=== PATIENT | female | born 1990 | race Caucasian/White ===

== ENCOUNTER 2023-11-01 14:17 | Inpatient (IN) | payer MEDICAID, SELFPAY ==
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
[2023-11-01 16:15] VITALS: BMI 22.4
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
[2023-11-01 20:00] VITALS: BP 135/91; PULSE 89; RESP 16; TEMP 36.9; O2SAT 99
[2023-11-01] MEDS: hydrOXYzine HCL 25 MG TABLET PO (22:42)
[2023-11-02 07:00] VITALS: BMI 22.7
[2023-11-02 08:00] VITALS: BP 120/70; PULSE 73; RESP 16; TEMP 36.4; O2SAT 98
[2023-11-02] MEDS: Nicotine 21 MG PATCH.TD24 TRANSDERMA (08:41)
[2023-11-02 08:45] LABS: Alanine Aminotransferase 14 U/L (0-31); Albumin Level 4.6 g/dL (3.5-5.0); Alkaline Phosphatase 62 U/L (39-117); Anion Gap 12 (12-20); Aspartate Amino Transferase 15 U/L (5-31); Bilirubin Total 0.3 mg/dL (0.0-1.0); Blood Urea Nitrogen 14 mg/dL (9-16); Calcium 9.8 mg/dL (8.4-10.2); Carbon Dioxide 24 mmol/L (22-29); Chloride 106 mmol/L (96-108); Cholesterol 187 mg/dL (<200); Creatinine Clr Calc Pharmacy 96.9; Estimated Glomerular Filt Rate > 60; Glucose Fasting 121 mg/dL (60-99); HDL Cholesterol 63 mg/dL (>40); LDL Cholesterol Calculated 107 mg/dL (<100); Potassium 4.3 mmol/L (3.3-5.1); Sodium 138 mmol/L (135-145); Total Protein 7.5 g/dL (6.5-8.0); Triglycerides 86 mg/dL (<150)
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
--- NOTE | 2023-11-02 09:25 | PC.NURSE ---
Pt signed a 3 day 11/02/23, up on Monday11/07/23
[2023-11-02 20:00] VITALS: BP 145/102; PULSE 110; TEMP 36.2; O2SAT 97
[2023-11-02] MEDS: lamoTRIgine 25 MG TABLET PO (20:47)
[2023-11-02] MEDS: OLANZapine 5 MG TABLET PO (20:47)
[2023-11-03 08:00] VITALS: BP 117/62; PULSE 60; RESP 14; TEMP 36.8; O2SAT 99
[2023-11-03] MEDS: Nicotine 21 MG PATCH.TD24 TRANSDERMA (08:41)
--- NOTE | 2023-11-03 09:27 | HO.PSYCHPN ---
Subjective Subjective Date of Service: 11/03/23 Reason For Visit: Schizoaffective disorder, bipolar type Subjective Notes: 3 Day Interim History: Reviewed with Dr. Norris. Pt presents with rapid and pressured speech. Observed responding to internal stimuli. labile. disorganized. Pt agreed to taking Depakote;risks/benefits reviewed. DC lamictal. DC Zyprexa. Start: risperidal 1mg PO BID. pt denies SI/HI/VH/AH. Medication Compliance: Yes Side effects from medications: No Attending Groups: Yes Review of Systems Constitutional: Reports as per HPI Eyes: Reports as per HPI Reports as per HPI Cardiovascular: Reports as per HPI Respiratory: Reports as per HPI Gastrointestinal: Reports as per HPI Musculoskeletal: Reports as per HPI Skin/Breast: Reports as per HPI Reports as per HPI Psychiatric: Reports as per HPI Endocrine: Reports as per HPI Hematologic/Lymphatic: Reports as per HPI Allergic/Immunologic: Reports as per HPI Mental Status Exam Mental Status Exam Narrative: Pt is alert and oriented; behavior is cooperative, tearful; dressed in casual attire; labile; eye contact appropriate; Speech is rapid rate, volume and pressured; circumstantial, focused on past trauma; denies SI/HI/VH/AH. Diagnostics Vital Signs (24Hr): Vital Signs - 24 hr 11/02/23 20:00 11/03/23 08:00 Temperature 97.2 F 98.2 F Pulse Rate 110 H 60 Respiratory Rate 14 Blood Pressure 145/102 H 117/62 Pulse Oximetry 97 99 Oxygen Delivery Method Room Air Room Air BMI result Body Mass Index 22.7 Labs 11/02/23 08:06 Labs: Laboratory Results - last 48 hr 11/02/23 08:06 Sodium 138 Potassium 4.3 Chloride 106 Carbon Dioxide 24 Anion Gap 12 BUN 14 Creatinine 0.78 Estim Creat Clear Calc 96.9 Estimated GFR > 60 Fasting Glucose 121 H Calcium 9.8 Total Bilirubin 0.3 AST 15 ALT 14 Alkaline Phosphatase 62 Total Protein 7.5 Albumin 4.6 Triglycerides 86 Cholesterol 187 LDL Cholesterol, Calc 107 H HDL Cholesterol 63 Medications Medications Current Medications Acetaminophen (Acetaminophen 325 Mg Tablet) 650 mg PO Q6H PRN PRN Reason: Headache/Pain Mild Scale (1-3) Al Hydroxide/Mg Hydroxide (Magnesium Hydrox/Alum Hydrox 30 Ml Oral.Susp) 30 ml PO Q6H PRN PRN Reason: Heartburn/Nausea Hydroxyzine HCl (Hydroxyzine Hcl 25 Mg Tablet) 25 mg PO Q6H PRN PRN Reason: Anxiety Last Admin: 11/01/23 22:42 Dose: 25 mg Lamotrigine (Lamotrigine 25 Mg Tablet) 25 mg PO BEDTIME PATRICK Last Admin: 11/02/23 20:47 Dose: 25 mg Magnesium Hydroxide (Milk Of Magnesia 30 Ml Oral.Susp) 30 ml PO DAILY PRN PRN Reason: Constipation Nicotine (Nicotine 21 Mg Patch.Td24) 21 mg TRANSDERMA DAILY [facility] Last Admin: 11/03/23 08:41 Dose: 21 mg Nicotine Polacrilex (Nicotine Polacrilex 2 Mg Gum) 4 mg BUCCAL Q2H PRN PRN Reason: Nicotine Cravings Olanzapine (Olanzapine 5 Mg Tablet) 5 mg PO Q4H PRN PRN Reason: agitation Olanzapine (Olanzapine 5 Mg Tablet) 5 mg PO BEDTIME PATRICK Last Admin: 11/02/23 20:47 Dose: 5 mg Trazodone HCl (Trazodone Hcl 50 Mg Tablet) 50 mg PO BEDTIME MRX1 PRN PRN Reason: Insomnia Allergies Allergies Allergy/AdvReac Type Severity Reaction Status Date / Time shrimp Allergy Anaphylaxis Verified 11/01/23 14:33 Sulfa (Sulfonamide Allergy Hives Verified 11/01/23 14:33 Antibiotics) Assessment & Plan Assessment & Plan (1) PTSD (post-traumatic stress disorder): Status: Acute Code(s): F43.10 - Post-traumatic stress disorder, unspecified (2) Substance-induced psychotic disorder: Status: Acute Code(s): F19.959 - Other psychoactive substance use, unspecified with psychoactive substance-induced psychotic disorder, unspecified Plan Patient is a 33-year-old female with history of PTSD who was brought into ER via brother d/t psychiatric decompensation and bizarre behavior. Plan: day notice 15 minute safety checks obtain collateral referral to outpatient prescriber and therapist encourage groups Start: Lamictal 25mg PO bedtime Zyprexa 5mg PO bedtime Initial diagnosis: Substance induced psychosis. Differential: Bipolar d/o 11/02: Pt presents with rapid and pressured speech. Observed responding to internal stimuli. labile. disorganized. Pt agreed to taking Depakote;risks/benefits reviewed. denies SI/HI/VH/AH. DC lamictal. DC Zyprexa. Start: risperidal 1mg PO BID Depakote 500mg PO BID Patient educated on: diagnosis, medication risk/benefits and therapeutic strategies Reason for continued inpatient stay Substantial Risk for: med/psych decompensation Time Spent With Patient Time: Total time managing care of this patient today _20___ minutes.
[2023-11-03] MEDS: Divalproex Sodium 500 MG TABLET.DR PO ×2 (10:08→21:56)
[2023-11-03] MEDS: hydrOXYzine HCL 25 MG TABLET PO ×2 (10:08→21:58)
[2023-11-03 20:00] VITALS: BP 167/72; PULSE 93; RESP 17; TEMP 36.5; O2SAT 98
[2023-11-03] MEDS: risperiDONE 1 MG TABLET PO (21:55)
[2023-11-03] MEDS: traZODone HCL 50 MG TABLET PO (21:56)
--- NOTE | 2023-11-04 08:53 | HO.PSYCHPN ---
Subjective Subjective Reason For Visit: Schizoaffective disorder, bipolar type Diagnostics Vital Signs (24Hr): Vital Signs - 24 hr 11/03/23 20:00 Temperature 97.7 F Pulse Rate 93 Respiratory Rate 17 Blood Pressure 167/72 H Pulse Oximetry 98 Oxygen Delivery Method Room Air BMI result Body Mass Index 22.7 Labs 11/02/23 08:06 Medications Medications Current Medications Acetaminophen (Acetaminophen 325 Mg Tablet) 650 mg PO Q6H PRN PRN Reason: Headache/Pain Mild Scale (1-3) Al Hydroxide/Mg Hydroxide (Magnesium Hydrox/Alum Hydrox 30 Ml Oral.Susp) 30 ml PO Q6H PRN PRN Reason: Heartburn/Nausea Divalproex Sodium (Divalproex Sodium 500 Mg Tablet.Dr) 500 mg PO BID [facility] Last Admin: 11/03/23 21:56 Dose: 500 mg Hydroxyzine HCl (Hydroxyzine Hcl 25 Mg Tablet) 25 mg PO Q6H PRN PRN Reason: Anxiety Last Admin: 11/03/23 21:58 Dose: 25 mg Magnesium Hydroxide (Milk Of Magnesia 30 Ml Oral.Susp) 30 ml PO DAILY PRN PRN Reason: Constipation Nicotine (Nicotine 21 Mg Patch.Td24) 21 mg TRANSDERMA DAILY [facility] Last Admin: 11/03/23 08:41 Dose: 21 mg Nicotine Polacrilex (Nicotine Polacrilex 2 Mg Gum) 4 mg BUCCAL Q2H PRN PRN Reason: Nicotine Cravings Risperidone (Risperidone 1 Mg Tablet) 1 mg PO BID [facility] Last Admin: 11/03/23 21:55 Dose: 1 mg Trazodone HCl (Trazodone Hcl 50 Mg Tablet) 50 mg PO BEDTIME MRX1 PRN PRN Reason: Insomnia Last Admin: 11/03/23 21:56 Dose: 50 mg Allergies Allergies Allergy/AdvReac Type Severity Reaction Status Date / Time shrimp Allergy Anaphylaxis Verified 11/01/23 14:33 Sulfa (Sulfonamide Allergy Hives Verified 11/01/23 14:33 Antibiotics) Assessment & Plan Assessment & Plan (1) PTSD (post-traumatic stress disorder): Status: Acute Code(s): F43.10 - Post-traumatic stress disorder, unspecified (2) Substance-induced psychotic disorder: Status: Acute Code(s): F19.959 - Other psychoactive substance use, unspecified with psychoactive substance-induced psychotic disorder, unspecified Plan Patient is a 33-year-old female with history of PTSD who was brought into ER via brother d/t psychiatric decompensation and bizarre behavior. Plan: / day notice 15 minute safety checks obtain collateral referral to outpatient prescriber and therapist encourage groups Start: Lamictal 25mg PO bedtime Zyprexa 5mg PO bedtime Initial diagnosis: Substance induced psychosis. Differential: Bipolar d/o 11/02: Pt presents with rapid and pressured speech. Observed responding to internal stimuli. labile. disorganized. Pt agreed to taking Depakote;risks/benefits reviewed. denies SI/HI/VH/AH. DC lamictal. DC Zyprexa. Start: risperidal 1mg PO BID Depakote 500mg PO BID Time Spent With Patient Time: Total time managing care of this patient today ____ minutes.
[2023-11-04 09:00] VITALS: BP 139/70; PULSE 105; RESP 16; TEMP 36.4; O2SAT 97
[2023-11-04] MEDS: risperiDONE 1 MG TABLET PO (09:16)
[2023-11-04] MEDS: Divalproex Sodium 500 MG TABLET.DR PO ×2 (09:16→21:40)
--- NOTE | 2023-11-04 09:48 | P.PNPSI_ITS ---
Subjective Subjective Date of Service: 11/04/23 Reason For Visit: Schizoaffective disorder, bipolar type Interim History: met with patient. Discussed with Nursing. Is elated with labile mood. Grandiosity. Talking a lot about physics, different dimensions, poor boundaries, rapid speech and pacing. Sleep has been okay. Is taking medications. Feels that Risperdal may be helping even out her mood in her words, but denies being manic or having any of her mental health symptoms or concerns. Reports goal of returning to her parent's house. Feels safe in the hospital. Here for discharge. Medication Compliance: Yes Side effects from medications: No Attending Groups: Yes Review of Systems Acute medical concerns: No Review of Systems Review of Systems Yes all other systems are reviewed and are negative Mental Status Exam Mental Status Exam Narrative: Pleasant with marketing copywriter. Fair self-care and tangential, pressured speech, grandiosity. Tearfulness at times when talking about discharge. No SI or HI evident. No hallucinations evident. Insight and judgment is limited Diagnostics Vital Signs (24Hr): Vital Signs - 24 hr 11/03/23 20:00 Temperature 97.7 F Pulse Rate 93 Respiratory Rate 17 Blood Pressure 167/72 H Pulse Oximetry 98 Oxygen Delivery Method Room Air BMI result Body Mass Index 22.7 Labs 11/02/23 08:06 Medications Medications Current Medications Acetaminophen (Acetaminophen 325 Mg Tablet) 650 mg PO Q6H PRN PRN Reason: Headache/Pain Mild Scale (1-3) Al Hydroxide/Mg Hydroxide (Magnesium Hydrox/Alum Hydrox 30 Ml Oral.Susp) 30 ml PO Q6H PRN PRN Reason: Heartburn/Nausea Divalproex Sodium (Divalproex Sodium 500 Mg Tablet.) 500 mg PO BID REPLACED BY [facility] Last Admin: 11/04/23 09:16 Dose: 500 mg Hydroxyzine HCl (Hydroxyzine Hcl 25 Mg Tablet) 25 mg PO Q6H PRN PRN Reason: Anxiety Last Admin: 11/03/23 21:58 Dose: 25 mg Magnesium Hydroxide (Milk Of Magnesia 30 Ml Oral.Susp) 30 ml PO DAILY PRN PRN Reason: Constipation Nicotine (Nicotine 21 Mg Patch.Td24) 21 mg TRANSDERMA DAILY REPLACED BY [facility] Last Admin: 11/04/23 09:44 Dose: Not Given Nicotine Polacrilex (Nicotine Polacrilex 2 Mg Gum) 4 mg BUCCAL Q2H PRN PRN Reason: Nicotine Cravings Risperidone (Risperidone 1 Mg Tablet) 1 mg PO BID [facility] Last Admin: 11/04/23 09:16 Dose: 1 mg Trazodone HCl (Trazodone Hcl 50 Mg Tablet) 50 mg PO BEDTIME MRX1 PRN PRN Reason: Insomnia Last Admin: 11/03/23 21:56 Dose: 50 mg Allergies Allergies Allergy/AdvReac Type Severity Reaction Status Date / Time shrimp Allergy Anaphylaxis Verified 11/01/23 14:33 Sulfa (Sulfonamide Allergy Hives Verified 11/01/23 14:33 Antibiotics) Assessment & Plan Assessment & Plan (1) PTSD (post-traumatic stress disorder): Status: Acute Code(s): F43.10 - Post-traumatic stress disorder, unspecified (2) Substance-induced psychotic disorder: Status: Acute Code(s): F19.959 - Other psychoactive substance use, unspecified with psychoactive substance-induced psychotic disorder, unspecified Plan 11/04/2023: Will increase Risperdal from 1 mg twice daily to 1 mg daytime and 2 mg at bedtime Reason for continued inpatient stay Substantial Risk for: inability to function Time Spent With Patient Time: Total time managing care of this patient today ____ minutes.
[2023-11-04] MEDS: Nicotine 21 MG PATCH.TD24 TRANSDERMA (10:20)
[2023-11-04 17:28] LABS: UPreg QC Valid YES; Urine Pregnancy NEGATIVE (NEGATIVE)
[2023-11-04 20:00] VITALS: BP 129/70; PULSE 114; RESP 18; TEMP 36.4; O2SAT 98
[2023-11-04] MEDS: risperiDONE 2 MG TABLET PO (21:40)
[2023-11-04] MEDS: hydrOXYzine HCL 25 MG TABLET PO (21:40)
[2023-11-05 08:00] VITALS: BP 125/68; PULSE 77; RESP 14; TEMP 36.4; O2SAT 98
--- NOTE | 2023-11-05 08:38 | P.PNPSI_ITS ---
Subjective Subjective Date of Service: 11/05/23 Reason For Visit: Schizoaffective disorder, bipolar type Interim History: met with patient. Discussed with Nursing. Is elated with labile mood. Remains grandiose. Rapid speech and vigorous pacing on the unit. Some outbursts yesterday and this morning and apologetic afterwards. Sleep has been okay. Is taking medications. Feels safe in the hospital. Eager for discharge. Medication Compliance: Yes Side effects from medications: No Attending Groups: Intermittent Review of Systems Acute medical concerns: No Review of Systems Review of Systems Yes all other systems are reviewed and are negative Mental Status Exam Mental Status Exam Narrative: Pleasant with ghost writer. Fair self-care and tangential, pressured speech, grandiosity. Tearful at times when talking about discharge. No SI or HI evident. No hallucinations evident. Insight and judgment is limited Diagnostics Vital Signs (24Hr): Vital Signs - 24 hr 11/04/23 09:00 11/04/23 20:00 11/05/23 08:00 Temperature 97.6 F 97.6 F 97.5 F Pulse Rate 105 H 114 H 77 Respiratory Rate 16 18 14 Blood Pressure 139/70 129/70 125/68 Pulse Oximetry 97 98 98 Oxygen Delivery Method Room Air Room Air Room Air BMI result Body Mass Index 22.7 Labs 11/02/23 08:06 Labs: Laboratory Results - last 48 hr 11/04/23 14:39 Urine Test NEGATIVE Medications Medications Current Medications Acetaminophen (Acetaminophen 325 Mg Tablet) 650 mg PO Q6H PRN PRN Reason: Headache/Pain Mild Scale (1-3) Al Hydroxide/Mg Hydroxide (Magnesium Hydrox/Alum Hydrox 30 Ml Oral.Susp) 30 ml PO Q6H PRN PRN Reason: Heartburn/Nausea Divalproex Sodium (Divalproex Sodium 500 Mg Tablet.) 500 mg PO BID [facility] Last Admin: 11/04/23 21:40 Dose: 500 mg Hydroxyzine HCl (Hydroxyzine Hcl 25 Mg Tablet) 25 mg PO Q6H PRN PRN Reason: Anxiety Last Admin: 11/04/23 21:40 Dose: 25 mg Magnesium Hydroxide (Milk Of Magnesia 30 Ml Oral.Susp) 30 ml PO DAILY PRN PRN Reason: Constipation Nicotine (Nicotine 21 Mg Patch.Td24) 21 mg TRANSDERMA DAILY [facility] Last Admin: 11/04/23 10:20 Dose: 21 mg Nicotine Polacrilex (Nicotine Polacrilex 2 Mg Gum) 4 mg BUCCAL Q2H PRN PRN Reason: Nicotine Cravings Risperidone (Risperidone 1 Mg Tablet) 1 mg PO DAILY PATRICK Risperidone (Risperidone 2 Mg Tablet) 2 mg PO BEDTIME [facility] Last Admin: 11/04/23 21:40 Dose: 2 mg Trazodone HCl (Trazodone Hcl 50 Mg Tablet) 50 mg PO BEDTIME MRX1 PRN PRN Reason: Insomnia Last Admin: 11/03/23 21:56 Dose: 50 mg Allergies Allergies Allergy/AdvReac Type Severity Reaction Status Date / Time shrimp Allergy Anaphylaxis Verified 11/01/23 14:33 Sulfa (Sulfonamide Allergy Hives Verified 11/01/23 14:33 Antibiotics) Assessment & Plan Assessment & Plan (1) PTSD (post-traumatic stress disorder): Status: Acute Code(s): F43.10 - Post-traumatic stress disorder, unspecified (2) Substance-induced psychotic disorder: Status: Acute Code(s): F19.959 - Other psychoactive substance use, unspecified with psychoactive substance-induced psychotic disorder, unspecified Plan 11/04/2023: Will increase Risperdal from 1 mg twice daily to 1 mg daytime and 2 mg at bedtime 11/05/2023: No changes to current medications as just increased yesterday Reason for continued inpatient stay Substantial Risk for: inability to function Time Spent With Patient Time: Total time managing care of this patient today ____ minutes.
[2023-11-05] MEDS: Divalproex Sodium 500 MG TABLET.DR PO ×2 (09:13→20:28)
[2023-11-05] MEDS: Nicotine 21 MG PATCH.TD24 TRANSDERMA (09:13)
[2023-11-05] MEDS: risperiDONE 1 MG TABLET PO (09:13)
[2023-11-05 20:00] VITALS: BP 132/72; PULSE 86; RESP 18; TEMP 36.8; O2SAT 100
[2023-11-05] MEDS: risperiDONE 2 MG TABLET PO (20:27)
[2023-11-05] MEDS: hydrOXYzine HCL 25 MG TABLET PO (20:38)
[2023-11-06 07:35] VITALS: BP 115/60; PULSE 94; RESP 14; TEMP 36.4; O2SAT 97
[2023-11-06] MEDS: Nicotine 21 MG PATCH.TD24 TRANSDERMA (07:43)
[2023-11-06] MEDS: risperiDONE 1 MG TABLET PO (08:09)
[2023-11-06] MEDS: Divalproex Sodium 500 MG TABLET.DR PO (08:09)
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
[2023-11-06 16:43] LABS: Valproate 60.6 mcg/mL (50.0-100.0)
[2023-11-06 16:52] LABS: Ammonia 58 umol/L (13-55)
[2023-11-06 16:53] LABS: Alanine Aminotransferase 17 U/L (0-31); Albumin Level 4.2 g/dL (3.5-5.0); Alkaline Phosphatase 56 U/L (39-117); Aspartate Amino Transferase 16 U/L (5-31); Bilirubin Direct < 0.2 mg/dL (0.0-0.5); Bilirubin Total 0.2 mg/dL (0.0-1.0); Total Protein 6.8 g/dL (6.5-8.0)
[2023-11-06] MEDS: Lactulose 20 GM/30 ML SOLUTION PO (17:30)
[2023-11-06 20:00] VITALS: BP 139/60; PULSE 92; RESP 16; TEMP 36.4; O2SAT 98
[2023-11-06] MEDS: Divalproex Sodium 250 MG TABLET.DR PO (20:39)
[2023-11-06] MEDS: risperiDONE 2 MG TABLET PO (20:39)
[2023-11-06] MEDS: traZODone HCL 50 MG TABLET PO (20:45)
[2023-11-07] MEDS: Divalproex Sodium 250 MG TABLET.DR PO (07:59)
[2023-11-07] MEDS: risperiDONE 1 MG TABLET PO (07:59)
[2023-11-07 08:00] VITALS: BP 120/72; PULSE 88; RESP 16; TEMP 36.2; O2SAT 98
[2023-11-07] MEDS: Nicotine 21 MG PATCH.TD24 TRANSDERMA (08:00)
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
[2023-11-07 09:42] LABS: Ammonia 54 umol/L (13-55)
[2023-11-07 09:51] LABS: Valproate 39.1 mcg/mL (50.0-100.0)
[2023-11-07 09:54] LABS: Alanine Aminotransferase 19 U/L (0-31); Albumin Level 4.1 g/dL (3.5-5.0); Alkaline Phosphatase 49 U/L (39-117); Aspartate Amino Transferase 19 U/L (5-31); Bilirubin Direct < 0.2 mg/dL (0.0-0.5); Bilirubin Total 0.2 mg/dL (0.0-1.0); Total Protein 6.6 g/dL (6.5-8.0)
[2023-11-07] MEDS: Naloxone HCl Nasal TAKE HOME 4 MG SPRAY 8 MG NOSTRILALT (10:46)
== END 2023-11-07 10:48 | disposition home or self-care (01) | DRG 755 ==
PROVIDERS: Admitting Provider Registered Nurse; Responsible Provider Registered Nurse; Visit Provider Psychiatry & Neurology Psychiatry
DX: F43.10 Post-traumatic stress disorder, unspecified (principal); F17.210 Nicotine dependence, cigarettes, uncomplicated; F19.959 Other psychoactive substance use, unspecified with psychoactive substance-induced psychotic disorder, unspecified; Z71.6 Tobacco abuse counseling; Z59.02 Unsheltered homelessness; Z79.899 Other long term (current) drug therapy
CPT/HCPCS: 36415; 80053; 80061; 80076; 80164; 81025; 82140

== ENCOUNTER → 2023-11-01 14:17 | Outpatient (BNV) | payer MEDICAID, SELFPAY | PROVIDERS: Admitting Provider Registered Nurse; Responsible Provider Registered Nurse; Visit Provider Physician Assistant | DX: Z02.2 Encounter for examination for admission to residential institution (principal) | CPT/HCPCS: 99429 ==

== ENCOUNTER → 2023-11-01 14:17 | Outpatient (BNV) | payer MEDICAID, SELFPAY | PROVIDERS: Admitting Provider Registered Nurse; Responsible Provider Registered Nurse; Visit Provider Psychiatry & Neurology Psychiatry | DX: F43.11 Post-traumatic stress disorder, acute (principal); F19.959 Other psychoactive substance use, unspecified with psychoactive substance-induced psychotic disorder, unspecified | CPT/HCPCS: 99231; 99232; 99233 ==